=== PATIENT | male | born 1960 | race Caucasian/White ===

== ENCOUNTER 2019-05-21 19:18 | Emergency (ER) | payer MEDICAID ==
[~2019-05-21] VITALS: Ht 193 cm; Wt 81.6 kg
[2019-05-21 19:27] VITALS: BP_SYST 100
--- NOTE | 2019-05-21 19:52 | NUR ---
Patient to ER bed 08 to gown for evaluation. Side rails up. Report received from MARIELA Antony
--- NOTE | 2019-05-21 20:10 | NUR ---
ER at bedside examining patient.
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
--- NOTE | 2019-05-21 20:23 | NUR ---
Playground Director bedside for blood draw
[2019-05-21 20:32] LABS: BASOPHILS % (AUTO) 1.1 % (0.0-2.0); EOSINOPHILS # (AUTO) 0.1 K/uL (0.0-0.4); EOSINOPHILS % (AUTO) 2.2 % (0.0-4.0); HEMATOCRIT 35.3 % (36-54); LYMPHOCYTES # (AUTO) 1.5 K/uL (1.0-5.5); LYMPHOCYTES % (AUTO) 32.3 % (20.5-51.5); MEAN CORPUSCULAR HEMOGLOBIN 34 pg (27-31); MEAN CORPUSCULAR HGB CONC 34 % (32-36); MEAN CORPUSCULAR VOLUME 100 fL (79.0-98.0); MONOCYTES # (AUTO) 0.4 K/uL (0.0-1.0); MONOCYTES % (AUTO) 8.1 % (1.7-9.3); NEUTROPHILS # (AUTO) 2.6 K/uL (1.8-7.7); NEUTROPHILS % (AUTO) 56.3 % (40.0-70.0); PLATELET COUNT (AUTO) 271 K/uL (130-430); RED BLOOD CELL COUNT(AUTO) 3.53 MIL/uL (4.2-6.2); RED CELL DISTRIBUTION WIDTH 13.7 % (9.0-15.0); WHITE BLOOD COUNT (AUTO) 4.5 K/uL (4.8-10.8)
[2019-05-21 20:48] LABS: CALCIUM 9.4 mg/dL (8.4-11.0); CREATININE 1.66 mg/dL (0.55-1.30)
[2019-05-21 20:51] LABS: INR 1.1 (0.80-1.20)
[2019-05-21 20:54] LABS: ALBUMIN 3.8 g/dL (3.4-4.8); TOTAL BILIRUBIN 0.6 mg/dL (0.0-1.0)
--- NOTE | 2019-05-21 20:56 | NUR ---
Radiology Bedside for Xray
[2019-05-21 20:57] LABS: POTASSIUM 2.9 mmol/L (3.5-5.1)
[2019-05-21] MEDS ORDERED: POTASSIUM CHLORIDE 20 MEQ TAB.PRT.SR PO ONE ×2 (21:00→21:45)
[2019-05-21] MEDS ORDERED: ONDANSETRON 4 MG ODT TAB PO ONE (21:00)
[2019-05-21] MEDS ORDERED: BACITRACIN 1 GM OINT TP ONE (21:30)
[2019-05-21] MEDS ORDERED: LIDOCAINE/EPI 1% 1:100000 20 ML VIAL IJ ONE (21:30)
[2019-05-21 21:37] LABS: BILIRUBIN,URINE NEGATIVE (NEGATIVE); BLOOD, URINE NEGATIVE (NEGATIVE); CLARITY/URINE CLEAR (CLEAR); COLOR,URINE YELLOW (YELLOW); GLUCOSE,URINE NEGATIVE (NEGATIVE); KETONES,URINE NEGATIVE (NEGATIVE); LEUKOCYTE ESTERASE ,URINE NEGATIVE (NEGATIVE); NITRITE, URINE NEGATIVE (NEGATIVE); PH,URINE 5.5 (5.0-8.0); PROTEIN URINE NEGATIVE (NEGATIVE); UROBILINOGEN,URINE 0.2 (0.2-1.0)
[2019-05-21 21:51] LABS: BARBITURATE, URINE NEGATIVE (NEG <=200); BENZODIAZEPINE, URINE NEGATIVE (NEG <=150); CANNABINOID, URINE NEGATIVE (NEG <=50); COCAINE, URINE NEGATIVE (NEG <=150); METHAMPHETAMINES SCREEN,URINE POSITIVE (NEG <=500); OPIATE, URINE NEGATIVE (NEG <=100); PHENCYCLIDINE SCREEN,URINE NEGATIVE (NEG <=25); UR TRICYCLIC ANTIDEPRESSANTS NEGATIVE (NEG <=300); URINE AMPHETAMINE POSITIVE (NEG <=500); URINE METHADONE NEGATIVE (NEG <=200); URINE OXYCODONE SCREEN NEGATIVE (NEG <=100); URINE PROPOXYPHENE SCREEN NEGATIVE (NEG <=300)
--- NOTE | 2019-05-21 21:58 | NUR ---
Pt given medications. Pt tolerated well.
--- NOTE | 2019-05-21 22:20 | NUR ---
Called Sister "Arianna" on patients behalf. [phone] Pt asked that we call and ask for a ride home
[2019-05-21 22:32] VITALS: BP_SYST 100
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
== END 2019-05-21 22:32 | disposition home or self-care (01) ==
LOC: SED 19:18
DX: S01.01XA Laceration without foreign body of scalp, initial encounter (principal); E87.6 Hypokalemia; E87.1 Hypo-osmolality and hyponatremia; D64.9 Anemia, unspecified; Z88.0 Allergy status to penicillin; Z86.19 Personal history of other infectious and parasitic diseases; Y04.0XXA Assault by unarmed brawl or fight, initial encounter; Y93.89 Activity, other specified; Y92.89 Other specified places as the place of occurrence of the external cause; Y99.8 Other external cause status
CPT/HCPCS: 12001; 36415; 70450; 71045; 80053; 80307; 81003; 84484; 85025; 85610; 85730; 93005; 99284; G0482; Q0162

== ENCOUNTER 2021-08-14 01:21 | Emergency (ER) | payer MEDICAID ==
[~2021-08-14] VITALS: Ht 190.5 cm; Wt 79.4 kg
[2021-08-14 01:35] VITALS: BP_SYST 124
[2021-08-14] MEDS ORDERED: IBUPROFEN 800 MG TABLET PO ONE (02:45)
[2021-08-14 07:13] VITALS: BP_SYST 124
== END 2021-08-14 07:13 | disposition home or self-care (01) ==
LOC: SED 01:21
DX: S09.90XA Unspecified injury of head, initial encounter (principal); Y04.0XXA Assault by unarmed brawl or fight, initial encounter; Y93.89 Activity, other specified; Y92.89 Other specified places as the place of occurrence of the external cause; Y99.8 Other external cause status
CPT/HCPCS: 99283